=== PATIENT | male | born 1950 | race Caucasian/White ===

== ENCOUNTER → 2019-01-29 | Emergency (ER) | payer OTHER ==
[~2019-01-29] VITALS: Ht 160 cm; Wt 83.0 kg
[~2019-01-29] MED LIST: AMLODIPINE BESI25 GM; ATORVASTATIN CA10 MG; AVAPRO75 MG; GLIMEPIRIDE4 MG
== END | disposition left against medical advice (07) ==
LOC: ER 19:54
DX: Z53.20 Procedure and treatment not carried out because of patient's decision for unspecified reasons (principal)

== ENCOUNTER 2019-09-26 22:34 | Emergency (ER) | payer OTHER ==
[~2019-09-26] VITALS: Ht 165.1 cm; Wt 86.2 kg
[2019-09-26] MEDS ORDERED: FORTAMET1000 MG (23:05)
== END 2019-09-27 00:48 | disposition designated cancer center or children's hospital (05) ==
LOC: ER 22:34
DX: S06.6X0A Traumatic subarachnoid hemorrhage without loss of consciousness, initial encounter (principal); S06.2X0A Diffuse traumatic brain injury without loss of consciousness, initial encounter; S42.032A Displaced fracture of lateral end of left clavicle, initial encounter for closed fracture; S22.42XA Multiple fractures of ribs, left side, initial encounter for closed fracture; S22.018A Other fracture of first thoracic vertebra, initial encounter for closed fracture; S08.112A Complete traumatic amputation of left ear, initial encounter; S60.222A Contusion of left hand, initial encounter; S80.12XA Contusion of left lower leg, initial encounter; W18.09XA Striking against other object with subsequent fall, initial encounter; Y93.89 Activity, other specified; Y92.098 Other place in other non-institutional residence as the place of occurrence of the external cause; Y99.8 Other external cause status

== ENCOUNTER 2019-10-09 17:40 | Emergency (ER) | payer OTHER ==
[~2019-10-09] VITALS: Ht 165.1 cm; Wt 90.7 kg
[~2019-10-09 17:40] MED LIST changes: +FORTAMET1000 MG
== END 2019-10-09 19:52 | disposition home or self-care (01) ==
LOC: ER 17:40
DX: Z48.02 Encounter for removal of sutures (principal)

== ENCOUNTER 2020-11-27 04:19 | Outpatient (CLI) | payer OTHER | END 2020-11-27 04:20 | disposition home or self-care (01) | LOC: PPH VACUNA 04:19 | PROVIDERS: ATTEND Emergency Medicine Pediatric Emergency Medicine | DX: Z23 Encounter for immunization (principal) ==

== ENCOUNTER 2021-07-22 14:30 | Outpatient (CLI) | payer OTHER | END 2021-07-22 15:00 | disposition home or self-care (01) | LOC: PPH VACUNA 14:30 | PROVIDERS: ATTEND Emergency Medicine Pediatric Emergency Medicine | DX: Z23 Encounter for immunization (principal) ==

== ENCOUNTER 2022-04-06 14:28 | Outpatient (CLI) | payer OTHER | END 2022-04-06 14:38 | disposition home or self-care (01) | LOC: PPH VACUNA 14:28 | PROVIDERS: ATTEND Emergency Medicine Pediatric Emergency Medicine | DX: Z23 Encounter for immunization (principal) ==